=== PATIENT | male | born 2005 | race Hispanic/Latino ===

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

== ENCOUNTER 2024-09-03 23:33 | Emergency (ER) | payer OTHER, SELFPAY | END 2024-09-04 02:03 | disposition home or self-care (01) | LOC: ERS 23:33 | DX: S16.1XXA Strain of muscle, fascia and tendon at neck level, initial encounter (principal); V89.2XXA Person injured in unspecified motor-vehicle accident, traffic, initial encounter | CPT/HCPCS: 70450; 72125 ==